=== PATIENT | female | born 1965 | race Caucasian/White ===

== ENCOUNTER 2016-02-11 14:16 | Emergency (ER) | payer OTHER, BC ==
[~2016-02-11] VITALS: Ht 157.5 cm; Wt 64.0 kg
[~2016-02-11 14:16] MED LIST: DICY1TAB26 PO; RANI150 PO
[2016-02-11 15:09] VITALS: BP 119/79; PULSE 70; RESP 16; TEMP 98.4; O2SAT 98
[2016-02-11] MEDS ORDERED: OMEP40CA2 PO (16:18)
[2016-02-11] MEDS ORDERED: ACETAMIN 325 MG/BUTALBITAL 50 MG/CAFFEINE 40 MG TAB PO ONE (17:00)
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
[2016-02-11] MEDS ORDERED: BUTA1CAP PO (18:08)
== END 2016-02-11 18:32 | disposition home or self-care (01) ==
LOC: PHED 14:16 → PHEFT 18:32
DX: G43.009 Migraine without aura, not intractable, without status migrainosus (principal); F17.210 Nicotine dependence, cigarettes, uncomplicated; V43.53XA Car driver injured in collision with pick-up truck in traffic accident, initial encounter; Y92.410 Unspecified street and highway as the place of occurrence of the external cause
CPT/HCPCS: 70450